=== PATIENT | male | born 1965 ===

== ENCOUNTER 2016-09-17 07:19 | Emergency (ER) | payer BC, OTHER ==
[2016-09-17 07:43] VITALS: BP 118/67
--- NOTE | 2016-09-17 08:28 | UC ---
Respiratory Complaint HPI - HPI Summary HPI Summary: [address], PAIN WITH SWALLOWING, LEFT EAR PRESSURE AND COUGH. NO FEVER, N/V/ D. - History of Current Complaint Chief Complaint: UCRespiratory Stated Complaint: SORE THROAT EAR PAIN Time Seen by Provider: 09/17/16 07:45 Hx Obtained From: Patient, Family/Financial Developer - Onset/Duration: Gradual Onset, Lasting Days, Still Present Timing: Constant Severity Initially: Moderate Severity Currently: Moderate Pain Intensity: 10 - SITTING IN ROOM IN NO ACUTE DISTRESS Pain Scale Used: 0-10 Numeric Character: Cough: Nonproductive Aggravating Factors: Nothing Alleviating Factors: Nothing Associated Signs And Symptoms: Positive: URI, Nasal Congestion - Allergies/Home Medications Allergies/Adverse Reactions: Allergies Allergy/AdvReac Type Severity Reaction Status Date / Time No Known Allergies Allergy Verified 11/23/12 07:25 PMH/Surg Hx/FS Hx/Imm Hx Cardiovascular History: Hypertension - Surgical History Surgical History: None - Family History Known Family History: Positive: Hypertension - Social History Alcohol Use: Rare Substance Use Type: None Smoking Status (MU): Never Smoked Tobacco Review of Systems Constitutional: Negative ENT: Sore Throat, Ear Ache Respiratory: Cough Cardiovascular: Negative Gastrointestinal: Negative All Other Systems Reviewed And Are Negative: Yes Physical Exam Triage Information Reviewed: Yes Appearance: Well-Appearing, No Pain Distress, Well-Nourished Vital Signs: Initial Vital Signs Temp 98 F 09/17/16 07:38 Pulse 86 09/17/16 07:38 Resp 16 09/17/16 07:38 BP 118/67 09/17/16 07:38 Pulse Ox 99 09/17/16 07:38 Vital Signs Reviewed: Yes Eyes: Positive: Conjunctiva Clear ENT: Positive: Hearing grossly normal, Pharyngeal erythema, TMs normal Neck: Positive: Supple, Nontender, No Lymphadenopathy Respiratory Exam: Normal Cardiovascular Exam: Normal Abdomen Description: Positive: Soft Musculoskeletal: Positive: No Edema Neurological: Positive: Alert Psychological: Positive: Normal Response To Family, Age Appropriate Behavior Skin: Negative: rashes UC Diagnostic Evaluation - Laboratory O2 Sat by Pulse Oximetry: 99 Diagnostic Studies Comment: RAPID STREP NEGATIVE Respiratory Course/Dx - Differential Dx/Diagnosis Provider Diagnoses: ACUTE PHARYNGITIS Discharge - Discharge Plan Condition: Stable Disposition: HOME Prescriptions: predniSONE TAB* [Deltasone TAB*] 40 mg PO DAILY #10 tab Patient Education Materials: Pharyngitis (ED) Referrals: Iglesia Rizo MD [Primary Care Provider] - If Needed Additional Instructions: RAPID STREP NEGATIVE. LIKELY VIRAL ETIOLOGY OF YOUR SYMPTOMS AND SHOULD RESOLVE WITH TIME. STAY HYDRATED. OTC MEDS NEEDED. TRY PREDNISONE TO HELP WITH INFLAMMATION.
== END 2016-09-17 08:33 | disposition home or self-care (01) ==
LOC: UCEAST 07:19
DX: J02.9 Acute pharyngitis, unspecified (principal); H92.09 Otalgia, unspecified ear; R05 Cough; I10 Essential (primary) hypertension
CPT/HCPCS: 87651; 99211; G0463